=== PATIENT | male | born 1970 | race Caucasian/White ===

== ENCOUNTER 2022-05-03 05:17 | Day surgery (SDC) | payer OTHER, SELFPAY ==
[2022-05-03] VITALS (33 sets, daily range): BP systolic 106–166; BP diastolic 65–98; PULSE 61–89; RESP 14–18; TEMP 36.2–36.7; O2SAT 70–100; BMI 31.5; BMI 31.8
--- NOTE | 2022-05-03 05:55 | CRLHL7_ITS ---
For Patients: As a result of the Century Cures Act, medical imaging exams and procedure reports are released immediately into your electronic medical record. You may view this report before your referring provider. If you have questions, please contact your health care provider. INDICATION: Hernia COMPARISON: None TECHNIQUE: CT examination of the abdomen and pelvis was performed following the uneventful intravenous administration of 120 cc of Isovue 370. Thin section axial images were obtained from the lung bases through the pubic symphysis. Oral contrast was not administered. Please note that all CT scans at this facility use dose modulation, iterative reconstruction, and/or weight-based dosing when appropriate to reduce radiation dose to as low as reasonably achievable. FINDINGS: LUNG BASES: Lingular granuloma. Lung bases otherwise unremarkable. Heart size is normal at the lung bases. LIVER/BILIARY SYSTEM:Normal sized liver. Scattered low-density lesions too small to characterize but likely all benign. No biliary ductal dilatation.The gall bladder appears normal. ADRENALS: Normal KIDNEYS, URETERS and BLADDER:The kidneys appear normal. No visible mass, calculus or hydronephrosis. The ureters and bladder as visualized appear normal. SPLEEN:Normal appearance. PANCREAS: Appears normal. RETROPERITONEUM and MESENTERY: There is no mass, adenopathy or aortic aneurysm. GASTROINTESTINAL SYSTEM: Moderate to large sized left inguinal hernia. This contains a portion of the sigmoid and a portion of the descending colon and a small amount of fluid. There does not appear to be ischemic necrosis or cuauhtemoc mechanical obstruction. However, there is stasis of fecal material in the descending colon just proximal to the hernia. PELVIS: No mass, adenopathy or free fluid. OSSEOUS STRUCTURES and ABDOMINAL WALL: There is an age-appropriate appearance of the osseous structures.Left inguinal hernia as above. Very small fat containing right inguinal hernia. OTHER: No free fluid or free air. IMPRESSION: Moderate to large size left inguinal hernia. This contains a portion of sigmoid and a portion of the descending colon and a small amount of fluid. No evidence of ischemic necrosis or cuauhtemoc mechanical obstruction. However, there is stasis of fecal material in the descending colon just proximal to the hernia. Please note that all CT scans at this facility use dose modulation, iterative reconstruction, and/or weight-based dosing when appropriate to reduce radiation dose to as low as reasonably achievable. Dictated by Chirag Hdz MD @ 05/03/2022 7:15:25 AM (Electronically Signed)
[2022-05-03] MEDS: LACTATED RINGERS 1000 ML 1,000 ML IV (06:05)
[2022-05-03 06:08] LABS: Basophils Absolute Auto 0.02 K/uL (0.00-0.30); Basophils Percent Auto 0.3 % (0.0-3.0); Eosinophils Absolute Auto 0.19 K/uL (0.00-0.50); Eosinophils Percent Auto 2.9 % (0.0-7.0); Hematocrit 44.1 % (37.0-53.0); Hemoglobin* 14.6 gm/dL (13.5-17.5); Immature Granulocytes Abs Auto 0.01 K/uL (0.00-0.30); Lymphocytes Absolute Auto 1.33 K/uL (0.90-2.90); Lymphocytes Percent Auto 20.6 % (20-44); Mean Corpuscular HGB Conc 33 gm/dL (32-36); Mean Corpuscular Hemoglobin 29 pg (26-34); Mean Corpuscular Volume 88 fL (80-100); Monocytes Percent Auto 6.5 % (0.0-11.0); Neutrophils Absolute Auto 4.49 K/uL (1.7-7.0); Neutrophils Percent Auto 69.5 % (42.0-72.0); Platelet Count* 273 K/uL (140-440); RDW Coefficient of Variation % 12.8 % (11.5-15.5); White Blood Count* 6.46 K/uL (4.50-11.00)
[2022-05-03 06:14] LABS: Slide Review Reflex No
[2022-05-03 06:24] LABS: Chloride* 103 mmol/L (96-114); Sodium* 140 mmol/L (135-149)
[2022-05-03 06:27] LABS: Blood Urea Nitrogen* 19 mg/dL (7-30); Calcium* 9.3 mg/dL (8.4-10.6); Carbon Dioxide* 28 mmol/L (20-32); Est. Creatinine Clearance* 100.47; Estimated Glomerular Filt Rate 91 ml/min; Glucose* 101 mg/dL (60-115)
[2022-05-03] MEDS: HYDROmorphone 0.5 mg/0.5 ml inj IVP ×2 (07:00→17:50)
[2022-05-03 07:03] LABS: SARS PCR* Negative SARS-CoV-2 (Negative)
--- NOTE | 2022-05-03 07:28 | ED_ITS ---
HPI - Abdominal Pain General Chief Complaint: Groin Pain Stated Complaint: Groin pain Time Seen by Provider: 05/03/22 05:20 Source: patient and family Mode of arrival: ambulatory Limitations: no limitations History of Present Illness HPI narrative: 82-year-old male with abdominal pain in the left inguinal region that started at noon yesterday which is approximately 18 hours prior to arrival. Pain is burning in nature and does not radiate. He can feel peristalsis in the bulge in his lower left anterior abdomen. Patient with known prior history of bilateral inguinal hernias, surgically repaired at age 5 initially. Did have a recurrence on the left side about 5 years ago which was able to be reduced by his description but was told he would likely need repeat surgery at some point. Pain came on suddenly yesterday and has been accompanied by anorexia. NPO since 4:00 p.m. last night. Has tried taking Tylenol and ibuprofen with no significant improvement in symptoms. Has tried to lay down to reduce the hernia with no success. No fevers. No blood in his stools. There is no vomiting. Has never required surgery to reduce the hernia emergently in the past. He does not take any anticoagulants. He has no history of anesthesia difficulties. No history of bleeding or blood clotting disorders. He has no significant prior cardiac history. He can perform greater than 6 Mets without any limitations of cardiopulmonary symptoms. No family history of anesthesia complications. Past medical history he reports is benign, no major long-term health problems. His only prior surgeries inguinal hernia repairs. He takes no prescription medications, has no allergies. Socially he is a nonsmoker with no recent travel or substance ingestion. ROS is negative times 12 systems with the exception of the abdominal symptoms as described above. Related Data Home Medications Medication Instructions Recorded Confirmed No Known Home Medications 05/03/22 05/03/22 Allergies Allergy/AdvReac Type Severity Reaction Status Date / Time Penicillins Allergy Unknown Verified 05/03/22 11:20 [facility] Medical History No significant past medical history Surgical History No significant past surgical history Social History Smoking Status: Never smoker Do you use any of these nicotine containing products: None Second hand tobacco smoke exposure: No How often do you have a drink containing alcohol: never How often do you have six or more drinks on one occasion: Never AUDIT-C Alcohol total score: 0 Non-prescribed substance use: denies use Exam Const: Vital Signs, click to edit/add: Vital Signs - 24 hr 05/03/22 05:21 05/03/22 06:03 05/03/22 06:00 Temperature 98.0 F Pulse Rate Pulse Rate [Right Pulse Oximeter] 89 74 Respiratory Rate 18 16 Blood Pressure Blood Pressure [Ri ght Upper Arm] 145/87 H 139/97 H Pulse Oximetry 98 98 97 Oxygen Delivery Me thod Nasal Cannula Room Air 05/03/22 07:47 05/03/22 11:22 05/03/22 08:20 Temperature 97.9 F Pulse Rate 71 Pulse Rate [Right Pulse Oximeter] 64 62 Respiratory Rate 18 16 16 Blood Pressure 134/87 Blood Pressure [Ri ght Upper Arm] 124/79 130/86 Pulse Oximetry 98 97 100 Oxygen Delivery Me thod Room Air Room Air Room Air 05/03/22 09:00 05/03/22 09:05 05/03/22 09:03 Temperature Pulse Rate Pulse Rate [Right Pulse Oximeter] 74 70 84 Respiratory Rate 16 16 Blood Pressure Blood Pressure [Ri ght Upper Arm] 130/87 133/81 135/81 Pulse Oximetry 97 97 70 L Oxygen Delivery Me thod Room Air Room Air Room Air 05/03/22 09:15 05/03/22 09:45 05/03/22 10:00 Temperature Pulse Rate Pulse Rate [Right Pulse Oximeter] 70 72 64 Respiratory Rate 16 16 16 Blood Pressure Blood Pressure [Ri ght Upper Arm] 126/84 125/83 123/80 Pulse Oximetry 99 100 99 Oxygen Delivery Me thod Nasal Cannula Nasal Cannula Nasal Cannula 05/03/22 10:15 05/03/22 10:30 05/03/22 10:45 Temperature Pulse Rate Pulse Rate [Right Pulse Oximeter] 61 62 66 Respiratory Rate 16 16 16 Blood Pressure Blood Pressure [Ri ght Upper Arm] 110/65 115/71 113/65 Pulse Oximetry 99 100 100 Oxygen Delivery Me thod Nasal Cannula Nasal Cannula Nasal Cannula 05/03/22 11:00 Temperature Pulse Rate Pulse Rate [Right Pulse Oximeter] 70 Respiratory Rate 16 Blood Pressure Blood Pressure [Ri ght Upper Arm] 106/75 Pulse Oximetry 100 Oxygen Delivery Me thod Nasal Cannula Documenting provider has reviewed patient's vital signs: yes Common normals: no apparent distress General appearance: cooperative and well kempt; not comfortable Other: Appears uncomfortable but friendly and cooperative. HENMT: Common normals: normocephalic Head and scalp: normocephalic Mouth: oral and palatal mucosa normal Throat: posterior oropharynx normal Eye: Common normals: EOMs intact bilaterally and conjunctivae normal Conjunctiva: conjunctiva(e) normal Neck & C-Spine: Common normals: no lymphadenopathy Resp: Common normals: normal respiratory effort, no use of accessory muscles and clear to auscultation bilaterally Effort & inspection: able to speak in complete sentences Auscultation: clear to auscultation bilaterally Cardio: Common normals: regular rate, regular rhythm, S1 normal heart sound, S2 normal heart sound, no murmurs and peripheral pulses 2+ throughout Rate: regular rate Rhythm: regular rhythm Heart sounds: S1 normal and S2 normal Peripheral pulses: pulses 2+ throughout GI: Common normals: Normal to inspection, nondistended, normoactive bowel sounds present, soft to palpation and no hepatosplenomegaly Palpation: soft and no hepatosplenomegaly Other: Obvious large bulge in the left lower quadrant inguinal region consistent with hernia. Surgical scars consistent with prior open repair. Attempted gentle reduction initially unsuccessful. Extremity: Common normals: normal capillary refill and no pedal edema Neuro: Speech: speech normal Motor exam: no tremor noted and no movement abnormalities noted Psych: Common normals: speech normal Appearance: well kempt Speech: normal speech Mood and affect: euthymic mood Insight: insight good Judgement: judgment good Skin: Common normals: no rashes or lesions noted General skin exam: no rashes or lesions noted Course Vital Signs Vital signs: Initial Vital Signs Temperature 98.0 F 05/03/22 05:21 Temperature Source Temporal Artery Scan 05/03/22 05:21 Pulse Rate 89 05/03/22 05:21 Respiratory Rate 18 05/03/22 05:21 Blood Pressure 145/87 H 05/03/22 05:21 Blood Pressure Mean 106 05/03/22 05:21 Blood Pressure Position Sitting 05/03/22 05:21 Pulse Oximetry 98 05/03/22 05:21 Oxygen Delivery Method 05/03/22 05:21 Vital Signs Temperature 98.0 F 05/03/22 05:21 Pulse Rate 89 05/03/22 05:21 Respiratory Rate 18 05/03/22 05:21 Blood Pressure 145/87 H 05/03/22 05:21 Pulse Oximetry 98 05/03/22 05:21 Oxygen Delivery Method 05/03/22 05:21 Temperature 97.9 F 05/03/22 11:22 Pulse Rate 71 05/03/22 11:22 Respiratory Rate 16 05/03/22 11:22 Blood Pressure 134/87 05/03/22 11:22 Pulse Oximetry 97 05/03/22 11:22 Oxygen Delivery Method 05/03/22 11:22 MDM - Abdominal Pain MDM Narrative Medical decision making narrative: Likely diagnosis incarcerated left inguinal hernia. Not exclude abscess, diverticulitis, volvulus, testicular torsion or other similar etiology. Discussed initially with surgical team, they do recommend getting a CT scan to further characterize. The CT scan is reviewed, showing no signs of necrosis but does confirm the suspected inguinal hernia of the large bowel. I further discussed the findings with the patient, we gave 0.5 mg of Dilaudid which did improve his pain control markedly. With this intervention know I was still unable to reduce the hernia completely. Because of this, I did update Dr. Strickland. She is going to try to reduce the hernia herself and has requested 4 mg of Versed and 200 mics of fentanyl be available upon her arrival. Lab Data Attestation: I reviewed the patient's lab results. Labs: Lab Results 05/03/22 05/03/22 05/03/22 Range/Units 05:50 05:59 05:59 WBC 6.46 (4.50-11.00) K/uL RBC 5.00 (4.30-5.90) m/uL Hgb 14.6 (13.5-17.5) gm/dL Hct 44.1 (37.0-53.0) % MCV 88 (80-100) fL MCH 29 (26-34) pg MCHC 33 (32-36) gm/dL RDW Coeff of Belle 12.8 (11.5-15.5) % Plt Count 273 (140-440) K/uL Neut % (Auto) 69.5 (42.0-72.0) % Lymph % (Auto) 20.6 (20-44) % [place] % (Auto) 6.5 (0.0-11.0) % Eos % (Auto) 2.9 (0.0-7.0) % Baso % (Auto) 0.3 (0.0-3.0) % Neut # (Auto) 4.49 (1.7-7.0) K/uL Lymph # (Auto) 1.33 (0.90-2.90) K/uL [place] # (Auto) 0.40 (0.00-0.90) K/UL Eos # (Auto) 0.19 (0.00-0.50) K/uL Baso # (Auto) 0.02 (0.00-0.30) K/uL Abs Immat Gran (auto) 0.01 (0.00-0.30) K/uL Sodium 140 (135-149) mmol/L Potassium 4.0 (3.6-5.1) mmol/L Chloride 103 (96-114) mmol/L Carbon Dioxide 28 (20-32) mmol/L BUN 19 (7-30) mg/dL Creatinine 1.0 (0.5-1.5) mg/dL Estimated Creat Clear 100.47 Estimated GFR 91 ml/min Glucose 101 (60-115) mg/dL Calcium 9.3 (8.4-10.6) mg/dL SARS-CoV-2 (PCR) Negative SARS-CoV-2 (Negative) Discharge Plan Discharge Clinical Impression: Incarcerated hernia Patient Disposition: Xfer Other Discharge Location: [facility] Condition: Stable
--- NOTE | 2022-05-03 07:42 | ED.NURSE ---
up to the bathroom and ambulatory without dizziness. feeling a little sore after Dr. Cooper attempted to reduce. Offered some medication to help with pain and declined at this time. Plan to wait for Dr. Strickland to consult.
[2022-05-03] MEDS: fentaNYL 100 MCG/2 ML inj 200 MCG IVP (09:08)
[2022-05-03] MEDS: MIDAZOLAM HCL 1 MG/ML inj 4 MG IVP (09:09)
--- NOTE | 2022-05-03 09:16 | P.GSCN_ITS ---
History of Present Illness Consult details Date Seen: 05/03/22 Consult date: 05/03/22 Reason for consult: hernia Narrative: Patient is an otherwise healthy 52-year-old male who presented to the emergency department with severe hernia pain, that started yesterday around noon. He states that he has a history of previous bilateral open inguinal hernia repair as a child. He reportedly developed a recurrence about 5 years ago. He states that he always has a bulge in that area and has never been able to fully reduce it. He does do a lot heavy lifting on a daily basis and for his work, as a commercial real estate assistant. Yesterday his hernia became acutely painful, which he describes as a burning sensation. Pushing on it causes it to become more painful. He does not have much of an appetite, denies any nausea or vomiting. No reported constipation or diarrhea. Surgical history is only positive for his previous open hernia repairs, he does not think mesh was placed at that time. Denies any problems with anesthesia. He is a nonsmoker. Review of Systems Status of ROS: Reports: 10 or more systems reviewed and unremarkable except as noted in History and below [facility] Medical History No significant past medical history Surgical History No significant past surgical history Social History Smoking Status: Never smoker Do you use any of these nicotine containing products: None Second hand tobacco smoke exposure: No How often do you have a drink containing alcohol: never How often do you have six or more drinks on one occasion: Never AUDIT-C Alcohol total score: 0 Non-prescribed substance use: denies use Meds Home Medications and Allergies Home Medications Medication Instructions Recorded Confirmed Type No Known Home Medications 05/03/22 05/03/22 History Allergies Allergy/AdvReac Type Severity Reaction Status Date / Time Penicillins Allergy Unknown Verified 05/03/22 09:43 Exam Narrative: Exam Narrative: General: Alert and oriented, nontoxic in appearance. Moderate distress secondary to pain Respiratory: Equal breath rise bilaterally, maintained on room air CV: Regular rhythm rate, well perfused Abdomen: Soft, nontender nondistended. No peritoneal signs. Genitourinary: Bilateral inguinal scars well healed. Large left inguinal hernia with incarcerated hernia sac and colon, reduction was attempted using procedural sedation and unsuccessful. Hernia is tender to palpation and during manipulation. No overlying skin changes. Const: Vital Signs, click to edit/add: Vital Signs - 24 hr 05/03/22 05:21 05/03/22 06:03 05/03/22 06:00 Temperature 98.0 F Pulse Rate [Right Pulse Oximeter] 89 74 Respiratory Rate 18 16 Blood Pressure [Ri ght Upper Arm] 145/87 H 139/97 H Pulse Oximetry 98 98 97 Oxygen Delivery Me thod Nasal Cannula Room Air 05/03/22 07:47 Temperature Pulse Rate [Right Pulse Oximeter] 64 Respiratory Rate 18 Blood Pressure [Ri ght Upper Arm] 124/79 Pulse Oximetry 98 Oxygen Delivery Me thod Room Air Results Labs Labs: Diabetes panel 05/03/22 Range/Units 05:59 Sodium 140 (135-149) mmol/L Potassium 4.0 (3.6-5.1) mmol/L Chloride 103 (96-114) mmol/L Carbon Dioxide 28 (20-32) mmol/L BUN 19 (7-30) mg/dL Creatinine 1.0 (0.5-1.5) mg/dL Glucose 101 (60-115) mg/dL Calcium 9.3 (8.4-10.6) mg/dL Calcium panel 05/03/22 Range/Units 05:59 Calcium 9.3 (8.4-10.6) mg/dL Pituitary panel 05/03/22 Range/Units 05:59 Sodium 140 (135-149) mmol/L Potassium 4.0 (3.6-5.1) mmol/L Chloride 103 (96-114) mmol/L Carbon Dioxide 28 (20-32) mmol/L BUN 19 (7-30) mg/dL Creatinine 1.0 (0.5-1.5) mg/dL Glucose 101 (60-115) mg/dL Calcium 9.3 (8.4-10.6) mg/dL Adrenal panel 05/03/22 Range/Units 05:59 Sodium 140 (135-149) mmol/L Potassium 4.0 (3.6-5.1) mmol/L Chloride 103 (96-114) mmol/L Carbon Dioxide 28 (20-32) mmol/L BUN 19 (7-30) mg/dL Creatinine 1.0 (0.5-1.5) mg/dL Glucose 101 (60-115) mg/dL Calcium 9.3 (8.4-10.6) mg/dL All other labs normal. Imaging Abdomen CT scan report/results: report reviewed and image reviewed Assessment and Plan Assessment and plan (1) Incarcerated left inguinal hernia: Status: Acute Plan Patient is a 52-year-old male with evidence of a large left inguinal hernia, incarcerated with colon. Vital signs stable and labs within normal limits. CT scan confirms the presence of a large hernia sac and colon within the inguinal canal. There is some inflammatory changes of surrounding fat and a small amount of fluid within the hernia sac as well. A reduction was attempted with procedural sedation via Versed and fentanyl, this was unsuccessful. Risks and benefits of operative intervention were discussed at length with the patient. I did review with him that this would be an open approach. I will plan to open up the hernia sac and visualized the incarcerated colon, to ensure no necrosis. If there is evidence of necrosis he does understand that I would convert to an exploratory laparotomy and colonic resection versus repair. The hernia will be repaired via tissue verses mesh. Different risks of recurrence were reviewed with the patient, including the increased risk of recurrence with a tissue repair (30%). The risks included were not limited to: Bleeding, infection, risk of damage to surrounding structure, possible need for additional procedures and postop complication such as NM, pneumonia, clot and stroke. I also reviewed with the patient and his the recovery, specifically no lifting greater than 20 lb for 6 weeks. All questions and concerns were addressed with patient agreeing to proceed to the operating room. -continue NPO, IV fluids while in the emergency department -preop antibiotic -OR this afternoon for open hernia repair
--- NOTE | 2022-05-03 09:22 | ED.NURSE ---
Dr. No is in the room talking with patient and attempted to reduce the hernia with medications of versed 2mg and fent 100mcg IVP now. Was unsuccessful and decided to add on to surgery schedule today at 1500. Patient is NPO and both are aware (pt and ). placed patient on O2 at 2 liters for decrease in pulse ox to 83% on room air. encouraged DB and with the O2 increased to 100% at [address] No talked to pt and about the surgery and possibly needing to use mesh.
[2022-05-03] MEDS: 0.9 % SODIUM CHLORIDE 1000 ml 1,000 ML 35 ML IV (10:15)
[2022-05-03] MEDS: LACTATED RINGERS 1000 ML 1,000 ML 100 ML IV (11:25)
[2022-05-03] MEDS: BUPIVACAINE 0.25% 30 ML INJECTION (16:46)
--- NOTE | 2022-05-03 17:01 | W.ANESCHARGE ---
Anesthesia Charges Start Date/Time Anesthesia Start Date: 05/03/22 Anesthesia Start Time: 14:15 Stop Date/Time Anesthesia Stop Date: 05/03/22 Anesthesia Stop Time: 17:00 Summary Emergency: Yes
--- NOTE | 2022-05-03 17:04 | PM.GSPRC ---
Operative Note Date of procedure: 05/03/22 Type of Procedure: Open left inguinal hernia repair with placement of mesh Procedure Description: After discussing the risks and benefits of the procedure, the patient signed informed consent.? The operative site was marked and the patient was brought to the operating room and placed on the operating table in supine position.? Care was taken to pad the patient's pressure points.?? The patient was then intubated by anesthesia.?? The operative site was then prepped and draped in the usual sterile fashion.? A time-out was then performed. Local anesthetic was injected into the skin and subcutaneous tissue overlying the inguinal canal. An oblique incision would was made over the external ring over the area of his previous scar. Dissection was carried down into the subcutaneous tissue using cautery until the external oblique fascia was encountered. This was cleared off. The external ring was identified and after injection of more local anesthetic, the external oblique was incised using a knife. This was extended using the Metzenbaum scissors with care to dissect the underlying cord structures away before cutting. There was scar tissue present around the external ring. This was carefully dissected through and cauterized. The cord was cleared from the inside of the inguinal canal and looped with a Eckerty drain. A large indirect inguinal hernia was identified. The hernia sac was day of dissected off of the cord structures. This was made difficult secondary to the scar tissue that was present from his previous repair. No mesh was apparent. A large cord lipoma was also identified and transected. This was opened to ensure no intra-abdominal contents were present. The previously incarcerated colon was not within the hernia sac and the fluid was clear. No concern for any associated necrosis of colon or bacterial translocation. The hernia sac was then ligated and the proximal and reduced into the abdomen. A piece of large polypropylene mesh was obtained and cut to size. This was secured to the pubic tubercle using interrupted 0 Nurolon suture. The 0 Nurolon suture was placed interrupted along the inguinal ligament and superiorly along the transversalis fascia securing the tails behind the cord and recreating the internal ring. Wound was examined for hemostasis. The external oblique fascia was then reapproximated with absorbable suture. The wound was then closed in layers including Jay's fascia and the dermis with the cervical suture. The skin was then closed with a running subcuticular suture. Sterile dressings were applied. Instrument sponge and needle counts were correct at the end of the case. The patient was woken and taken to the PACU in stable condition. ? Sterile dressings were then applied. ? The patient was then woken and transported to the recovery area in stable condition. ? The patient tolerated the procedure well. Findings: Large indirect inguinal hernia. This was able to be reduced in the operating room, no evidence of strangulation of hernia contents. Anesthesia: GETA Surgeon: Jackelin Strickland MD Estimated blood loss (mL): 25 Condition: stable Disposition: PACU
[2022-05-03] MEDS: KETOROLAC 15 MG/ML inj IVP (17:50)
[2022-05-03] MEDS: LACTATED RINGERS 1000 ML 1,000 ML 125 ML IV ×2 (19:52→23:39)
--- NOTE | 2022-05-03 20:16 | PC.NURSE ---
shift note: pt to rm via bed @ 2723. pt states pain 01/10, drsg to abd c/d/i. pt denies nausea. Pt medicated with prn dilaudid and toradol with relief of pain. spouse at bedside. IV patent.
[2022-05-04] MEDS: KETOROLAC 15 MG/ML inj IVP (01:14)
[2022-05-04 03:00] VITALS: BP 118/76; PULSE 84; RESP 16; TEMP 36.4; O2SAT 100
[2022-05-04] MEDS: ACETAMINOPHEN 325 MG TABLET 650 MG PO (03:26)
[2022-05-04 07:00] VITALS: BP 126/77; PULSE 84; RESP 20; TEMP 36.8; O2SAT 97
--- NOTE | 2022-05-04 07:32 | P.DS_ITS ---
DS: Providers Provider Date Seen: 05/04/22 Primary care physician: Nikhil Tim MD Attending Physician on discharge: Jackelin Strickland MD DS: Summary Hospital Course Hospital Course: Patient presented to the emergency department with hernia pain of left groin. Workup was obtained with evidence of incarcerated left inguinal hernia. This was unable to be reduced in the emergency department. Patient proceeded to the operating room for an open left inguinal hernia repair. No evidence of any compromised bowel or concern for strangulation. Mesh was able to be placed within the space. Overnight patient did well. At the time of discharge patient's pain was well controlled with oral medications, he was tolerating regular diet, ambulating and voiding independently. Time Spent with Patient Time attestation: Total time spent providing and/or coordinating discharge services: Exam Narrative: Exam Narrative: General: Alert and oriented, no acute distress Genitourinary: Abdominal binder applying compression to the area. Incision clean/dry/intact, small amount of surrounding ecchymoses. Appropriately tender to palpation. Const: Vital Signs, click to edit/add: Vital Signs - 24 hr 05/03/22 07:47 05/03/22 11:22 05/03/22 08:20 Temperature 97.9 F Pulse Rate 71 Pulse Rate [Pulse Oximeter] Pulse Rate [Right Pulse Oximeter] 64 62 Respiratory Rate 18 16 16 Blood Pressure 134/87 Blood Pressure [Le ft Arm] Blood Pressure [Ri ght Upper Arm] 124/79 130/86 Pulse Oximetry 98 97 [facility] Room Air 05/03/22 09:00 05/03/22 09:05 05/03/22 09:03 Temperature Pulse Rate Pulse Rate [Pulse Oximeter] Pulse Rate [Right Pulse Oximeter] 74 70 84 Respiratory Rate 16 16 Blood Pressure Blood Pressure [Le ft Arm] Blood Pressure [Ri ght Upper Arm] 130/87 133/81 135/81 Pulse Oximetry 97 97 70 L Oxygen Delivery Nm thod Room Air Room Air Room Air 05/03/22 09:15 05/03/22 09:45 05/03/22 10:00 Temperature Pulse Rate Pulse Rate [Pulse Oximeter] Pulse Rate [Right Pulse Oximeter] 70 72 64 Respiratory Rate 16 16 16 Blood Pressure Blood Pressure [Le ft Arm] Blood Pressure [Ri ght Upper Arm] 126/84 125/83 123/80 Pulse Oximetry 99 100 99 Oxygen Delivery Me thod Nasal Cannula Nasal Cannula Nasal Cannula 05/03/22 10:15 05/03/22 10:30 05/03/22 10:45 Temperature Pulse Rate Pulse Rate [Pulse Oximeter] Pulse Rate [Right Pulse Oximeter] 61 62 66 Respiratory Rate 16 16 16 Blood Pressure Blood Pressure [Le ft Arm] Blood Pressure [Ri ght Upper Arm] 110/65 115/71 113/65 Pulse Oximetry 99 100 100 Oxygen Delivery Me thod Nasal Cannula Nasal Cannula Nasal Cannula 05/03/22 11:00 05/03/22 16:56 05/03/22 17:20 Temperature 97.8 F Pulse Rate 62 67 Pulse Rate [Pulse Oximeter] Pulse Rate [Right Pulse Oximeter] 70 Respiratory Rate 16 14 15 Blood Pressure 140/88 H 166/97 H Blood Pressure [Le ft Arm] Blood Pressure [Ri ght Upper Arm] 106/75 Pulse Oximetry 100 97 98 Oxygen Delivery Me thod Nasal Cannula Room Air Room Air 05/03/22 17:28 05/03/22 17:00 05/03/22 17:05 Temperature 97.9 F Pulse Rate 67 71 71 Pulse Rate [Pulse Oximeter] Pulse Rate [Right Pulse Oximeter] Respiratory Rate 15 16 18 Blood Pressure 156/98 H 135/78 136/83 Blood Pressure [Le ft Arm] Blood Pressure [Ri ght Upper Arm] Pulse Oximetry 97 98 99 Oxygen Delivery Me thod Room Air Room Air 05/03/22 17:10 05/03/22 17:15 05/03/22 17:25 Temperature 97.8 F Pulse Rate 67 68 64 Pulse Rate [Pulse Oximeter] Pulse Rate [Right Pulse Oximeter] Respiratory Rate 16 16 16 Blood Pressure 135/86 152/94 H 163/92 H Blood Pressure [Le ft Arm] Blood Pressure [Ri ght Upper Arm] Pulse Oximetry 98 96 99 Oxygen Delivery Me thod Room Air Room Air Room Air 05/03/22 17:37 05/03/22 17:37 05/03/22 17:37 Temperature 97.2 F L 97.2 F L Pulse Rate 70 Pulse Rate [Pulse Oximeter] Pulse Rate [Right Pulse Oximeter] Respiratory Rate 16 16 Blood Pressure Blood Pressure [Le ft Arm] 155/90 H 155/90 H Blood Pressure [Ri ght Upper Arm] Pulse Oximetry 99 99 Oxygen Delivery Me thod Room Air Room Air 05/03/22 17:37 05/03/22 18:00 05/03/22 17:50 Temperature 97.2 F L 97.2 F L 97.2 F L Pulse Rate Pulse Rate [Pulse Oximeter] 61 Pulse Rate [Right Pulse Oximeter] Respiratory Rate 16 16 16 Blood Pressure Blood Pressure [Le ft Arm] 155/90 H 134/82 141/88 H Blood Pressure [Ri ght Upper Arm] Pulse Oximetry 99 99 99 Oxygen Delivery Me thod Room Air Room Air Room Air 05/03/22 18:15 05/03/22 19:00 05/03/22 19:30 Temperature 97.2 F L 97.4 F L Pulse Rate Pulse Rate [Pulse Oximeter] 62 61 79 Pulse Rate [Right Pulse Oximeter] Respiratory Rate 16 16 16 Blood Pressure Blood Pressure [Le ft Arm] 132/83 118/72 129/79 Blood Pressure [Ri ght Upper Arm] Pulse Oximetry 99 99 95 Oxygen Delivery Me thod Room Air Room Air Room Air 05/03/22 20:30 05/03/22 21:30 05/03/22 22:32 Temperature 97.5 F L 97.4 F L 97.4 F L Pulse Rate Pulse Rate [Pulse Oximeter] 80 83 82 Pulse Rate [Right Pulse Oximeter] Respiratory Rate 16 16 16 Blood Pressure Blood Pressure [Le ft Arm] 121/78 115/72 118/73 Blood Pressure [Ri ght Upper Arm] Pulse Oximetry 94 97 95 Oxygen Delivery Me thod Room Air Room Air Room Air 05/04/22 03:00 Temperature 97.6 F Pulse Rate Pulse Rate [Pulse Oximeter] 84 Pulse Rate [Right Pulse Oximeter] Respiratory Rate 16 Blood Pressure Blood Pressure [Le ft Arm] 118/76 Blood Pressure [Ri ght Upper Arm] Pulse Oximetry 100 Oxygen Delivery Me thod Room Air Discharge Plan Discharge Disposition: Home, Self-Care Discharging Surgeon: Jackelin Strickland Follow-Up Appointment: 2 week follow up Prescriptions: New oxycodone 5 mg tablet 5 mg PO Q6H PRN (Reason: pain) Qty: 15 0RF senna 8.6 mg capsule 8.6 mg PO DAILY PRN (Reason: constipation) Qty: 90 0RF Activity Level: No strenuous activity Activity Detail: Activity as tolerated. Avoid strenuous activity. No lifting greater than 20 lb for 6 weeks. Discharge Diet: Regular Patient Instructions: Surgical Site Infections (DC), Inguinal Hernia Repair (DC), Post-Operative Instructions: Hernia Repair Forms: Work/Release Restrictions Follow-up: Nikhil Tim MD [Primary Care Provider] - Discharge Orders: Discharge Order (Routine); Ordered 05/04/22 Ordered By: Jackelin Strickland
[2022-05-04] MEDS: OXYCODONE 5 MG TABLET PO (10:48)
--- NOTE | 2022-05-04 10:59 | PC.NURSE ---
Discharge Note: Patient discharge to home. Instructions reviewed with him and his . Prescriptions sent to [facility] as sen[facility] requested. All questions have been answered. Patient was taken by w/c to the car.
== END 2022-05-04 11:00 | disposition home or self-care (01) ==
LOC: ED 10:28 → SS 11:29 → MEDSURG 05-04 05:20
PROVIDERS: Family Medicine; Emergency Provider Family Medicine; PCP Family Medicine; Visit Provider Surgery
PROC: (CPT 49521; principal; 2022-05-03 15:00)
DX: K40.31 Unilateral inguinal hernia, with obstruction, without gangrene, recurrent (principal)
CPT/HCPCS: 49521; 00830; 36415; 74177; 80048; 85025; 87635; 94761; 99140; 99283; 99285; A9270; C1781; J0330; J1170; J1885; J2250; J2405; J2704; J3010; J3490; J7030; J7120; Q9967

== ENCOUNTER 2023-08-14 16:18 | Emergency (ER) | payer OTHER, SELFPAY ==
[2023-08-14 16:47] VITALS: BP 155/81; PULSE 74; RESP 18; TEMP 36.6; O2SAT 98; BMI 29.2
[2023-08-14 17:14] VITALS: O2SAT 96
[2023-08-14 17:15] VITALS: O2SAT 96
--- NOTE | 2023-08-14 17:28 | ED_ITS ---
HPI - General Adult General Chief complaint: Chest Pain Stated complaint: chest pain Time Seen by Provider: 08/14/23 17:12 History of Present Illness HPI narrative: This 53-year-old male comes in reporting some chest discomfort and tightness since last evening. He does not report any nausea, vomiting, lightheadedness, shortness of breath, or diaphoresis. He does not have any exercise intolerance. In fact he was doing weightlifting yesterday which included some dips and squats which she normally does not do. He suspects that he may have strained his chest muscles in this process. He does have family history of coronary artery disease. His father was a smoker and had diabetes. This patient does not have any other risk factors. Related Data Home Medications Medication Instructions Recorded Confirmed No Known Home Medications 08/14/23 08/14/23 Allergies Allergy/AdvReac Type Severity Reaction Status Date / Time Penicillins Allergy Unknown Verified 08/14/23 16:52 Review of Systems Status of ROS: Reports: 10 or more systems reviewed and unremarkable except as noted in History and below Narrative: Constitutional: No fevers, no weight gain or loss. Eyes: No discharge. No vision changes. HENT: No congestion, no sore throat, no ear pain. Cardiovascular: No palpitations. Chest discomfort as described above. Respiratory: No shortness of breath, no wheezes, no cough. Gastrointestinal: No abdominal pain, no vomiting, no diarrhea. Genitourinary: No dysuria, no hematuria. Musculoskeletal: Normal range of motion. Skin: No rashes, no pruritis. Neurological: No dizziness, weakness, sensory change, speech change. Endo/Heme/Allergies: No bruising or bleeding. No polydipsia. Pysch: no suicidality, no anxiety, no insomnia. All other systems reviewed and are negative. [facility] Medical History No significant past medical history Surgical History No significant past surgical history Social History Smoking Status: Never smoker Do you use any of these nicotine containing products: None Second hand tobacco smoke exposure: No How often do you have a drink containing alcohol: never How often do you have six or more drinks on one occasion: Never AUDIT-C Alcohol total score: 0 Non-prescribed substance use: denies use Exam Narrative: Exam Narrative: Constitutional: Well-developed, well-nourished, no acute distress. HEENT: Normocephalic, atraumatic. Neck: Normal range of motion. Nontender. Supple. Heart: Regular. No murmurs. Normal rate. Intact distal pulses. Lungs: Clear to auscultation. No chest discomfort. No wheezes, rhonchi, or rales. Abdomen: Normal bowel sounds. Nontender. No rebound tenderness. Genitalia: Deferred. Back: No midline tenderness. Normal range of motion. Extremities: Normal range of motion. No injury. Skin: Intact. No rash. Warm. No erythema or pallor. Neurologic: No altered sensation. No weakness. Alert and oriented. Psychiatric: No suicidality. No anxiety or depression. No insomnia. Nursing notes and vitals signs are reviewed. Const: Vital Signs, click to edit/add: Vital Signs - 24 hr 08/14/23 16:47 08/14/23 17:14 08/14/23 17:14 Temperature 97.8 F Pulse Rate Pulse Rate [Right] 74 Respiratory Rate 18 Blood Pressure [Ri ght Upper Arm] 155/81 H Pulse Oximetry 98 96 96 Oxygen Delivery Me thod Room Air 08/14/23 17:15 08/14/23 17:30 08/14/23 17:31 Temperature Pulse Rate Pulse Rate [Right] Respiratory Rate Blood Pressure [Ri ght Upper Arm] Pulse Oximetry 96 97 96 Oxygen Delivery Me thod 08/14/23 17:45 Temperature Pulse Rate 61 Pulse Rate [Right] Respiratory Rate Blood Pressure [Ri ght Upper Arm] Pulse Oximetry 93 Oxygen Delivery Me thod Course Vital Signs Vital signs: Initial Vital Signs Temperature 97.8 F 08/14/23 16:47 Temperature Source Temporal Artery Scan 08/14/23 16:47 Pulse Rate 74 08/14/23 16:47 Pulse Rhythm Regular 08/14/23 16:47 Respiratory Rate 18 08/14/23 16:47 Blood Pressure 155/81 H 08/14/23 16:47 Blood Pressure Mean 105 08/14/23 16:47 Blood Pressure Position Sitting 08/14/23 16:47 Pulse Oximetry 98 08/14/23 16:47 Oxygen Delivery Method Room Air 08/14/23 16:47 Vital Signs Temperature 97.8 F 08/14/23 16:47 Pulse Rate 74 08/14/23 16:47 Respiratory Rate 18 08/14/23 16:47 Blood Pressure 155/81 H 08/14/23 16:47 Pulse Oximetry 98 08/14/23 16:47 Oxygen Delivery Method Room Air 08/14/23 16:47 Temperature 97.8 F 08/14/23 16:47 Pulse Rate 61 08/14/23 17:45 Respiratory Rate 18 08/14/23 16:47 Blood Pressure 155/81 H 08/14/23 16:47 Pulse Oximetry 93 08/14/23 17:45 Oxygen Delivery Method Room Air 08/14/23 16:47 Medical Decision Making MDM Narrative Medical decision making narrative: This patient comes in with some chest discomfort as described above. He thinks that it may be related to some weightlifting that he was doing yesterday. An EKG is obtained and returns with normal sinus rhythm and no signs of ST or T- wave abnormality. Additionally lab results also returned with normal findings. In particular his troponin returns at 0. This patient's discomfort is most likely chest wall related due to musculoskeletal strain. He is okay to be disc harged home. Lab Data Labs: Lab Results 08/14/23 08/14/23 Range/Units 17:05 17:15 WBC 5.77 (4.50-11.00) K/uL RBC 5.00 (4.30-5.90) m/uL Hgb 14.4 (13.5-17.5) gm/dL Hct 44.4 (37.0-53.0) % MCV 89 (80-100) fL MCH 29 (26-34) pg MCHC 32 (32-36) gm/dL RDW Coeff of Belle 13.1 (11.5-15.5) % Plt Count 292 (140-440) K/uL Neut % (Auto) 57.8 (42.0-72.0) % Lymph % (Auto) 30.8 (20-44) % [place] % (Auto) 7.6 (0.0-11.0) % Eos % (Auto) 3.3 (0.0-7.0) % Baso % (Auto) 0.3 (0.0-3.0) % Neut # (Auto) 3.33 (1.7-7.0) K/uL Lymph # (Auto) 1.78 (0.90-2.90) K/uL [place] # (Auto) 0.40 (0.00-0.90) K/UL Eos # (Auto) 0.19 (0.00-0.50) K/uL Baso # (Auto) 0.02 (0.00-0.30) K/uL Abs Immat Gran (auto) 0.01 (0.00-0.30) K/uL Imm/Tot Granulo (auto) 0.2 % Sodium 139 (135-149) mmol/L Potassium 4.1 (3.6-5.1) mmol/L Chloride 105 (96-114) mmol/L Carbon Dioxide 24 (20-32) mmol/L Anion Gap 10 (7-15) mEq/L BUN 21 (7-30) mg/dL Creatinine 1.2 (0.5-1.5) mg/dL Estimated Creat Clear 87.40 Estimated GFR 72 ml/min Glucose 79 (60-115) mg/dL Calcium 9.6 (8.4-10.6) mg/dL POC Troponin I 0.00 L (0.01-0.04) ng/ml ECG Data Attestation: I personally reviewed and interpreted this ECG as follows: Interpretation: Normal sinus rhythm. Rate is 73 beats per minute. There are no ST or T-wave abnormalities. Discharge Plan Discharge Clinical Impression: Acute chest wall pain Patient Disposition: Home, Self-Care Condition: Stable Additional Instructions: Continue current plans. Use [id number] medicines as needed and directed. Follow up with MD or return if worsening. Prescriptions: No Action No Known Home Medications Follow Up/Referrals: Nikhil Tim MD [Primary Care Provider] - Stand Alone Forms: [employer] Info Instructions
[2023-08-14 17:30] VITALS: O2SAT 97
[2023-08-14 17:31] VITALS: O2SAT 96
[2023-08-14 17:37] LABS: Basophils Absolute Auto 0.02 K/uL (0.00-0.30); Basophils Percent Auto 0.3 % (0.0-3.0); Eosinophils Absolute Auto 0.19 K/uL (0.00-0.50); Eosinophils Percent Auto 3.3 % (0.0-7.0); Hematocrit 44.4 % (37.0-53.0); Hemoglobin* 14.4 gm/dL (13.5-17.5); Immature Granulocytes Abs Auto 0.01 K/uL (0.00-0.30); Immature Granulocytes Pct Auto 0.2 %; Lymphocytes Absolute Auto 1.78 K/uL (0.90-2.90); Lymphocytes Percent Auto 30.8 % (20-44); Mean Corpuscular HGB Conc 32 gm/dL (32-36); Mean Corpuscular Hemoglobin 29 pg (26-34); Mean Corpuscular Volume 89 fL (80-100); Monocytes Percent Auto 7.6 % (0.0-11.0); Neutrophils Absolute Auto 3.33 K/uL (1.7-7.0); Neutrophils Percent Auto 57.8 % (42.0-72.0); Platelet Count* 292 K/uL (140-440); RDW Coefficient of Variation % 13.1 % (11.5-15.5); White Blood Count* 5.77 K/uL (4.50-11.00)
[2023-08-14 17:38] LABS: Slide Review Reflex No
[2023-08-14 17:45] VITALS: PULSE 61; O2SAT 93
[2023-08-14 17:49] LABS: Chloride* 105 mmol/L (96-114); Sodium* 139 mmol/L (135-149)
[2023-08-14 17:50] LABS: Potassium* 4.1 mmol/L (3.6-5.1)
[2023-08-14 17:52] LABS: Anion Gap 10 mEq/L (7-15); Carbon Dioxide* 24 mmol/L (20-32); Creatinine* 1.2 mg/dL (0.5-1.5); Estimated Glomerular Filt Rate 72 ml/min
[2023-08-14 17:53] LABS: Blood Urea Nitrogen* 21 mg/dL (7-30); Calcium* 9.6 mg/dL (8.4-10.6); Glucose* 79 mg/dL (60-115)
== END 2023-08-14 18:09 | disposition home or self-care (01) ==
PROVIDERS: Emergency Provider Emergency Medicine Emergency Medical Services; PCP Family Medicine
DX: R07.9 Chest pain, unspecified (principal)
CPT/HCPCS: 36415; 80048; 84484; 85025; 93005; 99284